=== PATIENT | male | born 1980 | race Caucasian/White ===

== ENCOUNTER 2019-05-01 19:27 | Emergency (ER) | payer BC, SELFPAY ==
[2019-05-01 19:33] VITALS: BP 152/80; PULSE 108; RESP 18; TEMP 37.5; O2SAT 97
[2019-05-01] MEDS: Ketorolac 30 MG/ML VIAL (20:02)
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
--- NOTE | 2019-05-01 20:20 | DI.RAD_ITS ---
SYMPTOMS/DIAGNOSIS: TRAUMA LEFT TIB/FIB: Four views. No priors. There is an oblique fracture at the distal metaphyseal junction of the left fibula. There is mild angulation of the fracture with apex directed laterally. There does appear to be mild widening of the medial ankle joint space. There is a small avulsed fracture of the posterior malleolus. Note is made of a small plantar calcaneal spur and an enthesophyte at the Achilles insertion. There is soft tissue swelling of the lower leg. IMPRESSION: Fractures involving the distal fibula and tibia as described.
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
[2019-05-01 21:27] VITALS: BP 148/62; PULSE 86; RESP 18; TEMP 37.5; O2SAT 97
== END 2019-05-01 21:27 | disposition home or self-care (01) ==
PROVIDERS: Emergency Provider Emergency Medicine
DX: S82.402A Unspecified fracture of shaft of left fibula, initial encounter for closed fracture (principal); V28.0XXA Motorcycle driver injured in noncollision transport accident in nontraffic accident, initial encounter
CPT/HCPCS: 96374; 99284; 73590; E0114; J1885

== ENCOUNTER 2019-05-07 06:07 | Day surgery (SDC) | payer BC, SELFPAY ==
[2019-05-07] VITALS (8 sets, daily range): BP systolic 142–177; BP diastolic 64–97; PULSE 80–97; RESP 10–18; TEMP 36.3–36.9; O2SAT 94–99
--- NOTE | 2019-05-07 06:55 | DI.RAD_ITS ---
SYMPTOMS/DIAGNOSIS: DISPLACED BIMALLEOLAR FRACTURE OF LEFT LOWER LEG; CHECK REDUCTION AFTER OPEN REDUCTION AND INTERNAL FIXATION LEFT ANKLE IN THE OR: Fluoroscopy Time: 26.2 sec, 1.12 mGy Fluoroscopy was utilized by Dr. Mccallum during the reduction and internal fixation of the distal left fibular fracture. Please refer to the procedure report for complete details. LEFT ANKLE: Three views. The patient is status post internal fixation of the distal left fibular fracture. Alignment of the fracture anatomic. The posterior malleolar fracture is not well visualized. There does appear to be mild widening of the medial joint space again noted.
[2019-05-07] MEDS: Lactated Ringers 1,000 ML 80 ML IV ×2 (07:18→10:24)
[2019-05-07] MEDS: ceFAZolin 2 GM/50 ML BAG IVPB (08:41)
--- NOTE | 2019-05-07 10:49 | W.PM.DSUDISC ---
Discharge Plan Disposition Patient Disposition: HOME Condition: Good Discharge Details Reason For Visit: BIMALLEOLAR FX (L) ANKLE Attending Provider: Joe Mccallum Primary Care Provider: ,Local Home Meds and New Rx's Prescriptions: New ibuprofen 800 mg tablet 800 mg PO TID Qty: 30 RF: 1 hydrocodone-acetaminophen 5-325 mg tablet 1 tab PO Q4H PRN (Reason: pain) Qty: 20 RF: 0 Continued acetaminophen [Tylenol Extra Strength] 500 mg tablet 1,000 mg PO Q4H PRNRF: 0 ibuprofen 600 mg tablet 600 mg PO TID PRN (Reason: pain) Qty: 20 RF: 0 oxycodone 5 mg tablet 5 mg PO Q6H PRN (Reason: pain) Qty: 7 RF: 0 Discharge Instructions Additional Instructions: Elevate L ankle on 1-2 pillows when sitting. Crutches to walk. May touch splint lightly to ground for balance, but DONT step and put weight on L foot. When standing still, can rest splint on floor for balance.(When shaving or brushing your teeth at the sink, for example) Keep dressings and splint dry and intact until return. Return to 's office in 2 weeks. Wiggle toes L foot 10 times/hour when awake to help reduce swelling. Take ibuprofen 3 times/day as prescribed to decrease swelling and pain. Take hydrocodone for breakthru pain, if needed. Stand Alone Forms: [facility] Post op Instructions, Scopolamine Skin Patch, Sindy Schneider ([facility]) Referrals: Joe Mccallum MD [ [facility] STAFF PHYSICIAN] - (f/u in 2 weeks.) Equipment/Supplies: Non-Weight Bearing Crutches Activity:: Activity as Tolerated Remove Dressings/Wound Care:: Do Not Remove Shower/Bathe:: Cover Diet:: As Tolerated Discharge Orders Discharge Orders: Discharge Order (Routine); Ordered 05/07/19 Ordered By: Joe Mccallum DS: Diagnosis Discharge Diagnosis (1) Bimalleolar fracture of left ankle: Status: Acute
[2019-05-07] MEDS: oxyCODONE-CR 10 MG TABCR PO (12:03)
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
== END 2019-05-07 12:54 | disposition home or self-care (01) ==
PROVIDERS: Visit Provider Orthopaedic Surgery
PROC: (CPT 27814; principal; 2019-05-07 08:30)
DX: S82.852A Displaced trimalleolar fracture of left lower leg, initial encounter for closed fracture (principal); V86.56XA Driver of dirt bike or motor/cross bike injured in nontraffic accident, initial encounter
CPT/HCPCS: 27814; 27829; C1713; 73600; 73610; J0131; J0690; J1100; J1200; J1885; J2250; J2405; J3010

== ENCOUNTER 2019-05-22 10:10 | Outpatient (CLI) | payer BC, SELFPAY ==
--- NOTE | 2019-05-22 09:27 | DI.RAD_ITS ---
SYMPTOM/DIAGNOSIS: ORIF LT ANKLE LEFT ANKLE: 05/22 Three views were obtained and show previously described plate and screw fixation of distal fibula and tibiofibular joint with a suture anchor in place in the medial malleolus. Alignment appears unchanged in comparison with previous examination of May 07
== END 2019-05-22 10:30 ==
PROVIDERS: Visit Provider Physician Assistant
DX: S82.842D Displaced bimalleolar fracture of left lower leg, subsequent encounter for closed fracture with routine healing (principal)
CPT/HCPCS: 73610

== ENCOUNTER 2019-06-26 11:00 | Outpatient (CLI) | payer BC, SELFPAY ==
--- NOTE | 2019-06-26 09:26 | DI.RAD_ITS ---
EXAM: XR ANKLE LT COMPLETE INDICATION:: F/U TECHNIQUE: 2D digital imaging was performed. FINDINGS: When compared with the prior examination 05/22/2019, there has been no interval change in the status o f the orthopedic hardware or alignment of the fibular fracture. The mortise joint remains intact IMPRESSION:
== END 2019-06-26 11:20 ==
PROVIDERS: Visit Provider Orthopaedic Surgery
DX: S82.842D Displaced bimalleolar fracture of left lower leg, subsequent encounter for closed fracture with routine healing (principal)
CPT/HCPCS: 73610

== ENCOUNTER 2019-07-18 10:24 | Outpatient (CLI) | payer BC, SELFPAY ==
--- NOTE | 2019-07-18 09:34 | DI.RAD_ITS ---
EXAM: XR ANKLE LT COMPLETE INDICATION: f/u. COMPARISON: XR ANKLE LT COMPLETE from 06/26/2019 TECHNIQUE: 2D digital imaging was performed. FINDINGS: The study is compared with the prior examination. Fibular fracture remains in excellent alignment. O rthopedic hardware in place. Mortise joint is well maintained.
== END 2019-07-18 10:44 ==
PROVIDERS: Visit Provider Orthopaedic Surgery
DX: S82.842D Displaced bimalleolar fracture of left lower leg, subsequent encounter for closed fracture with routine healing (principal)
CPT/HCPCS: 73610

== ENCOUNTER 2019-08-15 09:38 | Outpatient (CLI) | payer BC, SELFPAY ==
--- NOTE | 2019-08-15 09:31 | DI.RAD_ITS ---
EXAM: XR ANKLE LT COMPLETE CLINICAL HISTORY: f/u TECHNIQUE: Three views were obtained. COMPARISON: XR ANKLE LT COMPLETE from 07/18/2019 FINDINGS: Again noted are plate and screw fixation of distal fibula with suture anchor in the medial malleolus and a tibial fibular fixation screw. No change in alignment in comparison with the previous examinat ion and the ankle mortise appears well maintained. Note is made however of a faint lucent halo assoc iated with the tibiofibular fixation screw which may represent loosening of this screw. Please corre late clinically. IMPRESSION:
== END 2019-08-15 09:58 ==
PROVIDERS: Visit Provider Orthopaedic Surgery
DX: S82.842D Displaced bimalleolar fracture of left lower leg, subsequent encounter for closed fracture with routine healing (principal)
CPT/HCPCS: 73610

== ENCOUNTER 2023-04-08 22:49 | Emergency (ER) | payer BC, SELFPAY ==
[2023-04-08 22:55] VITALS: BP 166/102; PULSE 99; RESP 20; TEMP 36.8; O2SAT 99
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
[2023-04-09] MEDS: Fluorescein STRIPS 100/BOX 1 MG (00:18)
[2023-04-09] MEDS: Tetracaine 0.5% 4 ML BTL (00:18)
[2023-04-09] MEDS: Erythromycin Ophth Oint 3.5 GM TUBE (00:34)
[2023-04-09 00:43] VITALS: BP 180/103; PULSE 86; RESP 24; O2SAT 99
== END 2023-04-09 00:45 | disposition home or self-care (01) ==
PROVIDERS: Emergency Provider Emergency Medicine Emergency Medical Services
DX: T15.91XA Foreign body on external eye, part unspecified, right eye, initial encounter (principal)
CPT/HCPCS: 99283